=== PATIENT | male | born 1960 | race African-American/Black ===

== ENCOUNTER 2022-07-02 08:44 | Outpatient (CLI) | payer OTHER, SELFPAY ==
--- NOTE | ~2022-07-02 | MR_ITS ---
EXAMINATION: MR shoulder LT wo con DATE: 07/02/2022 09:41 INDICATION: Acute onset left shoulder pain TECHNIQUE: Magnetic resonance imaging (MRI) of the left shoulder was performed without intravenous co ntrast. Sequences included axial PD-weighted FS FSE, coronal oblique PD-weighted FS FSE, coronal obli que T2-weighted FS FSE, sagittal PD-weighted FS FSE, and sagittal T1-weighted SE. COMPARISON: None. FINDINGS: Coracoacromial arch: The acromion undersurface is minimally curved in morphology (type I-II). The coracoacromial ligament is normal. Moderate acromioclavicular osteoarthritis. Rotator cuff: Mild supraspinatus and infraspinatus tendinopathy without tear. The teres minor tendon is normal. Mil d subscapularis with longitudinal split tear extending 3 cm medially from the lesser tuberosity footp late the cephalad half from the inferior half of the tendon. There is attenuation of the p ortion of the tendon cephalad to the split tear, the bursal side of which appears to remain intact an d contiguous with the transverse humeral ligament but with tear involving the lesser tuberosity attac hment of the remainder of the cephalad portion of the tendon. This is likely chronic given the modera te associated fatty atrophy involving the deeper half of the subscapularis muscle belly. Remainder of the rotator cuff musculature is normal. Biceps tendon, glenoid labrum and glenohumeral cartilage: Long head of the biceps tendon is normal but subluxed across the cephalad aspect of the intertubercul ar groove and over the subscapularis tendon lesser tuberosity tear defect. Glenoid labrum is normal. Mild glenohumeral osteoarthritis with mild nonuniform partial-thickness cartilage loss with smooth ch ondral surface at the cephalad half of the glenoid and posterior inferior aspect of the humeral head. Fluid: Physiologic amount of fluid in the glenohumeral joint and biceps tendon sheath. No loose osteochondr al bodies. No abnormal fluid signal in the subacromial/subdeltoid bursa to suggest bursitis. 12 x 3 x 2 mm ganglion cyst along the dorsal aspect of the distal clavicle which arises from the acromioclavi cular joint. Bones: Bone alignment is normal. No fracture or pathologic marrow replacing process. IMPRESSION: 1. Mild subscapularis tendinopathy with partial tear involving the cephalad aspect of the lesser tube rosity footplate which is likely chronic given the moderate associated muscular atrophy. 2. Mild supraspinatus and infraspinatus tendinopathy without tear. 3. Mild glenohumeral and moderate acromioclavicular osteoarthritis. Reviewed, dictated and finalized at location L. [facility] CLERK IMPRESSION: 1. Mild subscapularis tendinopathy with partial tear involving the cephalad asp ect of the lesser tuberosity footplate which is likely chronic given the modera te associated muscular atrophy. 2. Mild supraspinatus and infraspinatus tendinopathy without tear. 3. Mild glenohumeral and moderate acromioclavicular osteoarthritis.
== END 2022-07-02 08:45 | disposition home or self-care (01) ==
LOC: ANHIMG 08:48
PROVIDERS: PCP Family Medicine; Visit Provider Physician Assistant
DX: M25.512 Pain in left shoulder (principal); G89.11 Acute pain due to trauma; M19.012 Primary osteoarthritis, left shoulder; M75.102 Unspecified rotator cuff tear or rupture of left shoulder, not specified as traumatic
CPT/HCPCS: 73221